=== PATIENT | male | born 1970 | race Caucasian/White ===

== ENCOUNTER 2021-11-03 14:49 | Emergency (ER) | payer OTHER, SELFPAY ==
[2021-11-03 19:18] LABS: SARS-COV-2 RT PCR POSITIVE (NEGATIVE)
--- NOTE | 2021-11-03 19:19 | EDPHYS ---
Physician Documentation [facility] Name: Gallito Blackburn Age: 50 yrs Sex: Male : 1970 Arrival Date: 11/03/2021 Time: 14:50 Bed DIS1 Private MD: ED Physician Flex Prieto HPI: 11/03 18:30 This 50 yrs old Male presents to ER via Ambulatory with complaints of Fever. cp 18:30 The patient reports fever, not measured (subjective). Onset: The symptoms/episode cp began/occurred yesterday. Associated signs and symptoms: Pertinent positives: cough, sinus congestion, sore throat, Pertinent negatives: abdominal pain, chest pain, diarrhea, vomiting. Severity of symptoms: in the emergency department the symptoms are unchanged despite home interventions. Patient reports he is not vaccinated against COVID-19. Historical: - Allergies: 15:01 No Known Allergies; tw2 - Home Meds: 15:05 gabapentin 300 mg oral cap 1 cap 3 times per day [Active]; folic acid 1 mg Oral tab 1 tw2 tab once daily [Active]; amlodipine 5 mg tab 1 tab once daily [Active]; amlodipine 10 mg tab 1 tab once daily [Active]; trazodone 100 mg Oral tab 1 tab once daily [Active]; hydroxyzine HCl 25 mg Oral tab [Active]; - Immunization history:: Client reports having NOT received the Covid vaccine. Flu vaccine is not up to date. - Social history:: Smoking status: Reported history of juuling and/or vaping. ROS: 18:35 Constitutional: Positive for body aches, chills, Negative for fever, poor PO intake. cp 18:35 Eyes: Negative for injury, pain, redness, and discharge. cp 18:35 ENT: Positive for sore throat, Negative for drainage from ear(s), ear pain, difficulty swallowing, difficulty handling secretions. 18:35 Cardiovascular: Negative for chest pain, palpitations. 18:35 Respiratory: Positive for cough, Negative for shortness of breath, wheezing. 18:35 Abdomen/GI: Negative for abdominal pain, nausea, vomiting, and diarrhea. 18:35 Back: Negative for pain at rest, pain with movement. 18:35 Neuro: Negative for altered mental status, dizziness, headache, weakness. 18:35 All other systems are negative. Exam: 18:40 Constitutional: The patient appears in no acute distress, alert, awake, comfortable, cp non-diaphoretic, non-toxic, well developed, well nourished. 18:40 Head/Face: Normocephalic, atraumatic. cp 18:40 Eyes: Periorbital structures: appear normal, Conjunctiva: normal, no exudate, no injection, Sclera: no appreciated abnormality, Lids and lashes: appear normal, bilaterally. 18:40 ENT: External ear(s): are unremarkable, Ear canal(s): are normal, clear, TM's: dullness, bilaterally, Nose: is normal, Mouth: Lips: moist, Oral mucosa: moist, Posterior pharynx: Airway: no evidence of obstruction, patent, Tonsils: no enlargement, no exudate, swelling, is not appreciated, erythema, that is mild. 18:40 Neck: ROM/movement: is normal, is supple, no meningismus, no nuchal rigidity, Lymph nodes: no appreciated lymphadenopathy. 18:40 Chest/axilla: Inspection: normal. 18:40 Cardiovascular: Rate: normal, Rhythm: regular. 18:40 Respiratory: the patient does not display signs of respiratory distress, Respirations: normal, no use of accessory muscles, no retractions, labored breathing, is not present, Breath sounds: bronchial sounds, are not appreciated, decreased breath sounds, are not appreciated, + upper airway congestion. wheezing: is not appreciated. 18:40 Abdomen/GI: Exam negative for discomfort, distension, guarding, Inspection: abdomen appears normal. 18:40 Neuro: Orientation: to person, place \\T\\ time. Mentation: is normal. Vital Signs: 14:59 BP 114 / 74; Pulse 80; Resp 18; Temp 97.9(TE); Pulse Ox 97% on R/A; tw2 19:44 BP 125 / 76; Pulse 75; Resp 20 S; Temp 98.1(O); Pulse Ox 98% on R/A; bb MDM: 18:27 Patient medically screened. cp 19:00 Differential diagnosis: viral Infection, bacterial infection, URI, pneumonia cp gastroenteritis, meningitis. 19:20 Data reviewed: vital signs, nurses notes, lab test result(s). cp 19:20 Counseling: I had a detailed discussion with the patient and/or guardian regarding: the cp historical points, exam findings, and any diagnostic results supporting the discharge/admit diagnosis, lab results, to return to the emergency department if symptoms worsen or persist or if there are any questions or concerns that arise at home. ED course: VSS. Patient appears non-toxic and no signs of respiratory distress. Will discharge to home for continued monitoring. 11/03 15:02 Order name: COVID-19/FLU A+B (Document "Date of Onset" if Symptomatic); Complete Time: tw 19:20 11/03 19:20 Interpretation: Reviewed. cp Administered Medications: No medications were administered Disposition Summary: 11/03/21 19:18 Discharge Ordered Location: Home cp Problem: new cp Symptoms: are unchanged cp Condition: Stable cp Diagnosis - SARS-associated coronavirus as the cause of diseases classified elsewhere cp Followup: cp - With: Private Physician - When: 2 - 3 days - Reason: Worsening of condition Discharge Instructions: - Discharge Summary Sheet cp - Aspirin and Your Heart cp - COVID-19 cp - Things to Know about the COVID-19 Pandemic - [facility] cp - 10 Things You Can Do to Manage Your COVID-19 Symptoms at Home - [facility] cp - COVID-19: Quarantine vs. Isolation - [facility] cp - Prevent the Spread of COVID-19 if You Are Sick - [facility] cp Forms: - Medication Reconciliation Form cp - Thank You Letter cp - Antibiotic Education cp - Prescription Opioid Use cp Prescriptions: - Ibuprofen 800 mg Oral Tablet - take 1 tablet by ORAL route every 8 hours As needed take with food; 30 tablet; cp Refills: 0, Product Selection Permitted - Tessalon Perles 100 mg Oral Capsule - take 2 capsule by ORAL route every 8 hours As needed; 20 capsule; Refills: 0, cp Product Selection Permitted Addendum: 11/05/2021 16:23 Co-signature as Attending Physician, Flex Prieto MD I agree with the assessment and s p3 plan of care. Signatures: Dispatcher [employer] EDMS Kiran Miles PA PA cp Wise, Tara, RN RN tw2 Flex Prieto MD MD sp3 Corrections: (The following items were deleted from the chart) 11/03 15:07 15:01 Home Meds: None; tw2 tw2
--- NOTE | 2021-11-03 19:19 | ER ---
Nurse's Notes [facility] Name: Gallito Blackburn Age: 50 yrs Sex: Male : 1970 Arrival Date: 11/03/2021 Time: 14:50 Bed DIS1 Private MD: Diagnosis: SARS-associated coronavirus as the cause of diseases classified elsewhere Presentation: 11/03 14:59 Chief complaint: Patient states: i started feeling bad yesterday with fever. i had tw2 chills. i had coughing and congestion. Coronavirus screen: congestion, cough unrelated to allergies, fever, shaking with chills, body aches Client presents with at least one sign or symptom that may indicate coronavirus-19. Standard/surgical mask placed on the client. Provider contacted for isolation considerations. Ebola Screen: Patient denies travel to an Ebola-affected area in the 21 days before illness onset. Initial Sepsis Screen: Does the patient meet any 2 criteria? No. Patient's initial sepsis screen is negative. Does the patient have a suspected source of infection? No. Patient's initial sepsis screen is negative. Risk Assessment: Do you want to hurt yourself or someone else? Patient reports no desire to harm self or others. Onset of symptoms was November 03, 2021. 14:59 Method Of Arrival: Ambulatory tw2 14:59 Acuity: LATRICE 4 tw2 Triage Assessment: 15:02 General: Appears in no apparent distress. well groomed, Behavior is calm, cooperative, tw2 appropriate for age. Pain: Denies pain. Historical: - Allergies: 15:01 No Known Allergies; tw2 - Home Meds: 15:05 gabapentin 300 mg oral cap 1 cap 3 times per day [Active]; folic acid 1 mg Oral tab 1 tw2 tab once daily [Active]; amlodipine 5 mg tab 1 tab once daily [Active]; amlodipine 10 mg tab 1 tab once daily [Active]; trazodone 100 mg Oral tab 1 tab once daily [Active]; hydroxyzine HCl 25 mg Oral tab [Active]; - Immunization history:: Client reports having NOT received the Covid vaccine. Flu vaccine is not up to date. - Social history:: Smoking status: Reported history of juuling and/or vaping. Screenin:31 Abuse screen: Denies threats or abuse. Denies injuries from another. Nutritional ss screening: No deficits noted. Tuberculosis screening: Never had TB. Fall Risk None identified. Assessment: 15:07 Reassessment: pt swabbed in triage. tw2 18:27 General: Appears in no apparent distress. comfortable, Behavior is calm, cooperative, ss Pt states, "I have to make sure I don't have COVID before I go back to the REHAB facility." . General: Reports fever for. Neuro: Level of Consciousness is awake, alert, obeys commands, Oriented to person, place, time, situation. Cardiovascular: Capillary refill < 3 seconds is brisk in bilateral fingers. Respiratory: Airway is patent Respiratory effort is even, unlabored, Respiratory pattern is regular, symmetrical. GI: No signs and/or symptoms were reported involving the gastrointestinal system. EENT: Nares are clear Oral mucosa is moist. Derm: Skin is intact, is healthy with good turgor, Skin is dry, Skin is pink, warm \\T\\ dry. normal. Musculoskeletal: Circulation, motion, and sensation intact. Range of motion: intact in all extremities, Swelling absent. 18:27 Reassessment: Called and spoke with lab personnel who states that it will be another ss 1-2 hours for COVID results as they are backed up. 19:43 Reassessment: Patient is alert, oriented x 3, equal unlabored respirations, skin bb warm/dry/pink. pt seen by this RN at discharge. Pt verbalized understanding of and agrees to plan of care discharge instructions given pt ambulated with steady gait to exit. Vital Signs: 14:59 BP 114 / 74; Pulse 80; Resp 18; Temp 97.9(TE); Pulse Ox 97% on R/A; tw2 19:44 BP 125 / 76; Pulse 75; Resp 20 S; Temp 98.1(O); Pulse Ox 98% on R/A; bb ED Course: 14:50 Patient arrived in ED. as 15:00 Triage completed. tw2 15:00 Arm band placed on. tw2 15:05 Leo from [facility] called to let us know that there is something wrong with the eb lines at the facility for us to please can his cell [phone]. 18:19 Kiran Miles PA is PHCP. cp 18:19 Flex Prieto MD is Attending Physician. cp 18:31 Patient has correct armband on for positive identification. ss 19:45 No provider procedures requiring assistance completed. Patient did not have IV access bb during this emergency room visit. Administered Medications: No medications were administered Outcome: 19:18 Discharge ordered by MD. cp 19:45 Discharged to home ambulatory. bb 19:45 Condition: stable 19:45 Discharge instructions given to patient, Instructed on discharge instructions, follow up and referral plans. medication usage, Demonstrated understanding of instructions, follow-up care, medications, Prescriptions given X 2. 19:45 Patient left the ED. bb Signatures: Mariel Wells Brenda, RN RN bb Lina John, RN RN ss Kiran Miles, DORIE PA cp Soraida Douglas RN RN tw2 Lily Castro Corrections: (The following items were deleted from the chart) 15:07 15:01 Home Meds: None; tw2 tw
[2021-11-03 20:02] VITALS: BP 125/76; TEMP 98.1; O2SAT 98
== END 2021-11-03 19:45 | disposition home or self-care (01) ==
LOC: ER 14:49
DX: U07.1 COVID-19 (principal)
CPT/HCPCS: 0240U; 99282